=== PATIENT | male | born 1970 | race African-American/Black ===

== ENCOUNTER 2017-07-23 02:00 | Emergency (ER) | payer OTHER ==
[~2017-07-23] VITALS: Ht 172.7 cm; Wt 90.7 kg
[2017-07-23 02:04] VITALS: BP_SYST 155
[2017-07-23 03:28] VITALS: BP_SYST 145
[2017-07-23] MEDS ORDERED: GLUXR500 PO (23:29)
[2017-07-23] MEDS ORDERED: HYDR-4100 PO (23:31)
[2017-07-23] MEDS ORDERED: LISI-600 PO (23:31)
== END 2017-07-23 03:28 | disposition home or self-care (01) ==
LOC: SED 02:00
DX: M79.645 Pain in left finger(s) (principal); I10 Essential (primary) hypertension; E11.9 Type 2 diabetes mellitus without complications; K21.9 Gastro-esophageal reflux disease without esophagitis; E78.5 Hyperlipidemia, unspecified; Y04.0XXA Assault by unarmed brawl or fight, initial encounter; Y93.89 Activity, other specified; Y92.89 Other specified places as the place of occurrence of the external cause; Y99.8 Other external cause status
CPT/HCPCS: 99284

== ENCOUNTER 2017-07-23 22:06 | Inpatient (IN) | payer OTHER ==
[~2017-07-23] VITALS: Ht 172.7 cm; Wt 81.6 kg
[2017-07-23 22:10] VITALS: BP_SYST 130
[2017-07-23] MEDS ORDERED: NACL 0.9% 1,000 ML IV ONE (22:21)
[2017-07-23] MEDS ORDERED: NITROGLYCERIN 1 INCH (GM) OINT. TP ONE (22:30)
[2017-07-23] MEDS ORDERED: ASPIRIN 81 MG TAB.CHEW PO ONE (22:30)
[2017-07-23 22:43] LABS: BASOPHILS # (AUTO) 0.1 K/uL (0.0-0.2); BASOPHILS % (AUTO) 1.2 % (0.0-2.0); EOSINOPHILS # (AUTO) 0.3 K/uL (0.0-0.4); EOSINOPHILS % (AUTO) 3.6 % (0.0-4.0); HEMATOCRIT 45.5 % (36-54); HEMOGLOBIN 15.2 g/dL (14.0-18.0); LYMPHOCYTES # (AUTO) 2.8 K/uL (1.0-5.5); LYMPHOCYTES % (AUTO) 32.4 % (20.5-51.5); MEAN CORPUSCULAR HEMOGLOBIN 31 pg (27-31); MEAN CORPUSCULAR HGB CONC 33 % (32-36); MEAN CORPUSCULAR VOLUME 91 fL (79.0-98.0); MONOCYTES # (AUTO) 0.6 K/uL (0.0-1.0); MONOCYTES % (AUTO) 7.2 % (1.7-9.3); NEUTROPHILS # (AUTO) 4.7 K/uL (1.8-7.7); NEUTROPHILS % (AUTO) 55.6 % (40.0-70.0); PLATELET COUNT (AUTO) 292 K/uL (130-430); RED BLOOD CELL COUNT(AUTO) 4.98 MIL/uL (4.2-6.2); RED CELL DISTRIBUTION WIDTH 13.6 % (9.0-15.0); WHITE BLOOD COUNT (AUTO) 8.5 K/uL (4.8-10.8)
[2017-07-23] MEDS ORDERED: KETOROLAC TROMETHAMINE 30 MG VIAL IVP ONE (23:00)
[2017-07-23 23:01] LABS: CALCIUM 9.1 mg/dL (8.4-11.0); CREATININE 1.14 mg/dL (0.55-1.30); POTASSIUM 3.6 mmol/L (3.5-5.1)
[2017-07-23 23:05] LABS: PROTHROMBIN TIME 10.3 SECS (9.5-12.5)
[2017-07-23 23:17] LABS: ALBUMIN 3.6 g/dL (3.4-4.8); TOTAL BILIRUBIN 0.4 mg/dL (0.0-1.0)
[2017-07-23] MEDS ORDERED: GLUXR500 PO (23:29)
[2017-07-23] MEDS ORDERED: HYDR-4100 PO (23:31)
[2017-07-23] MEDS ORDERED: LISI-600 PO (23:31)
[2017-07-23] MEDS ORDERED: MORPHINE 2 MG/ML INJ. SYRINGE IVP PRN (23:45)
[2017-07-23] MEDS ORDERED: ONDANSETRON HCL 4 MG/2 ML VIAL IVP PRN (23:45)
[2017-07-23] MEDS ORDERED: ACETAMINOPHEN 325 MG TABLET PO PRN (23:45)
[2017-07-23 23:50] VITALS: BP_SYST 107
[2017-07-24 00:08] LABS: FREE T4 (FREE THYROXINE) 1.1 ng/dl (0.8-1.5); PHOSPHORUS 4.6 mg/dL (2.7-4.5); THYROID STIMULATING HORMONE 2.19 uIu/mL (0.36-3.74)
[2017-07-24] MEDS ORDERED: FLU VACC QS 2017-18(36MOS+)/PF 0.5 ML/SYR SYRINGE I.M. PRN (00:45)
[2017-07-24] MEDS: NACL 0.9% 1,000 ML IV SCH ×2 (00:53→19:44)
[2017-07-24 06:45] LABS: CALCIUM 8.4 mg/dL (8.4-11.0); CREATININE 1.05 mg/dL (0.55-1.30); POTASSIUM 3.4 mmol/L (3.5-5.1)
[2017-07-24 07:57] VITALS: BP_SYST 144
[2017-07-24] MEDS ORDERED: ZOLPIDEM TARTRATE 5 MG TABLET PO PRN (08:00)
[2017-07-24] MEDS ORDERED: MORPHINE 4 MG/ML INJ. SYRINGE IVP PRN (08:00)
[2017-07-24] MEDS ORDERED: ONDANSETRON HCL 4 MG/2 ML VIAL IM PRN (08:00)
[2017-07-24] MEDS ORDERED: POTASSIUM CHLORIDE 20 MEQ TAB.PRT.SR PO PRN (08:00)
[2017-07-24] MEDS ORDERED: BISACODYL 10 MG/SUPPOSITORY RC PRN (08:00)
[2017-07-24] MEDS ORDERED: LORazepam 2 MG/ML VIAL IVP PRN (08:00)
[2017-07-24] MEDS ORDERED: SIMETHICONE 80 MG TAB.CHEW PO PRN (08:00)
[2017-07-24] MEDS ORDERED: GLUCOSE 15 GM GEL (in 37.5 GM TUBE) PO PRN ×2 (08:30)
[2017-07-24] MEDS ORDERED: INSULIN REGULAR, HUMAN 100 UNITS/ML, 10 ML VIAL (novoLIN R) SUBCUT PRN (08:30)
[2017-07-24] MEDS ORDERED: DEXTROSE 50%-WATER 50 ML DISP.SYRIN IVP PRN ×2 (08:30)
[2017-07-24] MEDS: DOCUSATE SODIUM 100 MG CAPSULE PO SCH ×2 (08:55→21:35)
[2017-07-24] MEDS: ASPIRIN 81 MG TAB.CHEW PO SCH (08:55)
[2017-07-24] MEDS: LISINOPRIL 10 MG TABLET (PRINIVIL) PO SCH (08:55)
[2017-07-24] MEDS: METOPROLOL TARTRATE 25 MG TABLET PO SCH ×2 (08:56→21:00)
[2017-07-24 12:02] VITALS: BP_SYST 116
[2017-07-24 16:10] VITALS: BP_SYST 105
[2017-07-24] MEDS: HYDROcodone/ACETAMIN 10-325 MG TAB PO PRN (19:35)
[2017-07-24 20:00] VITALS: BP_SYST 105
[2017-07-24] MEDS: SIMVASTATIN 20 MG TABLET PO SCH (21:36)
[2017-07-25 01:49] VITALS: BP_SYST 99
[2017-07-25 06:09] LABS: BASOPHILS % (AUTO) 0.4 % (0.0-2.0); EOSINOPHILS # (AUTO) 0.2 K/uL (0.0-0.4); EOSINOPHILS % (AUTO) 2.8 % (0.0-4.0); HEMATOCRIT 39.2 % (36-54); HEMOGLOBIN 13.5 g/dL (14.0-18.0); LYMPHOCYTES # (AUTO) 3.3 K/uL (1.0-5.5); LYMPHOCYTES % (AUTO) 42.6 % (20.5-51.5); MEAN CORPUSCULAR HEMOGLOBIN 32 pg (27-31); MEAN CORPUSCULAR HGB CONC 34 % (32-36); MEAN CORPUSCULAR VOLUME 92 fL (79.0-98.0); MONOCYTES # (AUTO) 0.6 K/uL (0.0-1.0); MONOCYTES % (AUTO) 7.3 % (1.7-9.3); NEUTROPHILS # (AUTO) 3.6 K/uL (1.8-7.7); NEUTROPHILS % (AUTO) 46.9 % (40.0-70.0); PLATELET COUNT (AUTO) 229 K/uL (130-430); RED BLOOD CELL COUNT(AUTO) 4.25 MIL/uL (4.2-6.2); RED CELL DISTRIBUTION WIDTH 13.9 % (9.0-15.0); WHITE BLOOD COUNT (AUTO) 7.7 K/uL (4.8-10.8)
[2017-07-25 06:30] LABS: CALCIUM 8.2 mg/dL (8.4-11.0); CREATININE 0.85 mg/dL (0.55-1.30); PHOSPHORUS 4.2 mg/dL (2.7-4.5); POTASSIUM 3.8 mmol/L (3.5-5.1)
[2017-07-25 08:06] LABS: T4 (THYROXINE) 7.3 ug/dL (4.5-12.0)
[2017-07-25 08:20] VITALS: BP_SYST 100
[2017-07-25] MEDS: DOCUSATE SODIUM 100 MG CAPSULE PO SCH ×2 (08:30→21:43)
[2017-07-25] MEDS: ASPIRIN 81 MG TAB.CHEW PO SCH (08:31)
[2017-07-25] MEDS: LISINOPRIL 10 MG TABLET (PRINIVIL) PO SCH (08:39)
[2017-07-25] MEDS: METOPROLOL TARTRATE 25 MG TABLET PO SCH ×2 (08:39→21:44)
[2017-07-25] MEDS: NACL 0.9% 1,000 ML IV SCH (08:51)
[2017-07-25 17:10] LABS: HEMOGLOBIN A1C 6.2 % (4.8-5.6)
[2017-07-25] MEDS: HYDROcodone/ACETAMIN 10-325 MG TAB PO PRN ×2 (17:57→23:19)
[2017-07-25 20:00] VITALS: BP_SYST 121
[2017-07-25] MEDS: SIMVASTATIN 20 MG TABLET PO SCH (21:43)
[2017-07-26] MEDS: NACL 0.9% 1,000 ML IV SCH (01:47)
[2017-07-26 02:20] VITALS: BP_SYST 118
[2017-07-26 08:00] VITALS: BP_SYST 103
[2017-07-26] MEDS: METOPROLOL TARTRATE 25 MG TABLET PO SCH (09:00)
[2017-07-26] MEDS: LISINOPRIL 10 MG TABLET (PRINIVIL) PO SCH (09:30)
[2017-07-26] MEDS: ASPIRIN 81 MG TAB.CHEW PO SCH (09:31)
[2017-07-26] MEDS: DOCUSATE SODIUM 100 MG CAPSULE PO SCH (09:31)
== END 2017-07-26 10:54 | disposition home or self-care (01) | DRG 203 ==
LOC: SED 22:06 → STU 23:33 → SMU 07-25 12:59
PROVIDERS: ADMIT Family Medicine; ATTEND Family Medicine
DX: M94.0 Chondrocostal junction syndrome [Tietze] (principal); E83.39 Other disorders of phosphorus metabolism; I10 Essential (primary) hypertension; E87.6 Hypokalemia; E78.5 Hyperlipidemia, unspecified; E11.9 Type 2 diabetes mellitus without complications; F41.9 Anxiety disorder, unspecified; F17.210 Nicotine dependence, cigarettes, uncomplicated; K21.9 Gastro-esophageal reflux disease without esophagitis; Z79.899 Other long term (current) drug therapy; Z71.6 Tobacco abuse counseling; Z80.0 Family history of malignant neoplasm of digestive organs
CPT/HCPCS: 36415; 71045; 80048; 80053; 80061; 82150-TC; 82962; 83036; 83690-TC; 83735-TC; 83880; 84100-TC; 84436; 84439; 84443-TC; 84479; 84484; 85025; 85610-TC; 85730-TC; 93005; 93306; 96361; 96374; 99285; J1815; J1885; J7030; Q2037

== ENCOUNTER 2018-12-30 00:14 | Emergency (ER) | payer OTHER ==
[~2018-12-30] VITALS: Ht 172.7 cm; Wt 99.8 kg
[~2018-12-30 00:14] MED LIST: GLUXR500 PO; HYDR-4100 PO; LISI-600 PO
[2018-12-30 00:17] VITALS: BP_SYST 167
--- NOTE | 2018-12-30 00:17 | NUR ---
Patient to ER bed 5 to gown for evaluation. Side rails up. Report given to BRODERICK BURTON.
--- NOTE | 2018-12-30 00:29 | NUR ---
ER Dr. Kuhn at bedside examining patient.
--- NOTE | 2018-12-30 00:30 | NUR ---
patient comes out of room following doctor stating "where dem kids at?"
== END 2018-12-30 00:35 | disposition left against medical advice (07) ==
LOC: SED 00:14
DX: G89.29 Other chronic pain (principal); M54.2 Cervicalgia; K21.9 Gastro-esophageal reflux disease without esophagitis; E11.9 Type 2 diabetes mellitus without complications; I10 Essential (primary) hypertension; E78.5 Hyperlipidemia, unspecified; Z53.20 Procedure and treatment not carried out because of patient's decision for unspecified reasons; Z79.899 Other long term (current) drug therapy
CPT/HCPCS: 99281

== ENCOUNTER 2021-09-10 13:11 | Emergency (ER) | payer OTHER ==
[~2021-09-10] VITALS: Ht 172.7 cm; Wt 97.5 kg
[~2021-09-10 13:11] MED LIST changes: +HYDR-3927 PO; -HYDR-4100 PO; -LISI-600 PO; +LISI20TA30 PO
[2021-09-10 13:25] VITALS: BP_SYST 181
--- NOTE | 2021-09-10 13:25 | NUR ---
HERE WITH 'S DEPT FOR OK TO BOOK, PT REPORTS LEFT CHRONIC HIP PAIN STATING "I NEED A HIP REPLACEMENT", AMBULATORY, [id number], VSS
--- NOTE | 2021-09-10 13:40 | NUR ---
ER DR. ARIAS AT THE BEDSIDE EXAMINING PT
--- NOTE | 2021-09-10 14:21 | NUR ---
Patient given written and verbal discharge instructions and verbalizes understanding. ER MD discussed with patient the results and treatment provided. Patient in stable condition. ID arm band removed. Patient educated on pain management and to follow up with PMD. Pain scale 0/10. Opportunity for questions provided and answered.
== END 2021-09-10 14:52 | disposition home or self-care (01) ==
LOC: SED 13:11
DX: G89.29 Other chronic pain (principal); M25.551 Pain in right hip; I10 Essential (primary) hypertension; E11.9 Type 2 diabetes mellitus without complications; K21.9 Gastro-esophageal reflux disease without esophagitis; Z79.899 Other long term (current) drug therapy
CPT/HCPCS: 99283